=== PATIENT | female | born 1990 | race Caucasian/White ===

== ENCOUNTER 2019-04-24 12:00 | Observation (INO) | payer MEDICAID, OTHER ==
[~2019-04-24] VITALS: Ht 172.7 cm; Wt 82.3 kg
--- NOTE | 2019-04-24 12:00 | NUR ---
NAOMI HARDY presented to unit via ambulatory from office, accompanied by S/O, with c/o FEVER, PAIN. NAOMI HARDY weighed, gowned, voided, and to bed. EFHM and TOCO applied, VS taken. NAOMI HARDY oriented to bed controls, call light, TV, heat, and A/C controls.
[2019-04-24 12:15] VITALS: BP 108/67
[2019-04-24] MEDS ORDERED: cefTRIAXone FOR IV USE 1,000 MG in WATER (STERILE) FOR INJECTION 10 ML IV NR (12:45)
[2019-04-24 13:00] VITALS: BP 118/64
[2019-04-24] MEDS ORDERED: CATHETER FLUSH 10 ML SYR IV PRN (13:00)
[2019-04-24 13:02] LABS: BASOPHILS % (AUTO) 0 % (0-10); EOSINOPHILS % (AUTO) 0 % (0-10); HEMATOCRIT 37 % (35-52); HEMOGLOBIN 12.4 G/DL (11.5-16.0); LYMPHOCYTES # (AUTO) 0.6 X 10^3 (1.0-4.0); LYMPHOCYTES % (AUTO) 3 % (12-44); MEAN CORPUSCULAR HEMOGLOBIN 32 PG (25-34); MEAN CORPUSCULAR HGB CONC 34 G/DL (32-36); MEAN CORPUSCULAR VOLUME 93 FL (80-99); MEAN PLATELET VOLUME 10.3 FL (7.4-10.4); MONOCYTES # (AUTO) 1.2 X 10^3 (0.0-1.0); MONOCYTES % (AUTO) 7 % (0-12); NEUTROPHILS # (AUTO) 16.3 X 10^3 (1.8-7.8); NEUTROPHILS % (AUTO) 90 % (42-75); PLATELET COUNT 225 10^3/uL (130-400); RED CELL DISTRIBUTION WIDTH 13.9 % (10.0-14.5); WHITE BLOOD COUNT 18.1 10^3/uL (4.3-11.0)
[2019-04-24] MEDS: NS IV 1000 ML 1,000 ML IV SCH ×2 (13:14→19:53)
[2019-04-24 13:22] LABS: ALANINE AMINOTRANSFERASE 14 U/L (0-55); ALBUMIN 3.7 GM/DL (3.2-4.5); ALKALINE PHOSPHATASE 93 U/L (40-136); BILIRUBIN,TOTAL 0.4 MG/DL (0.1-1.0); BUN/CREATININE RATIO 10; CALCIUM 8.4 MG/DL (8.5-10.1); CARBON DIOXIDE 20 MMOL/L (21-32); CHLORIDE 106 MMOL/L (98-107); CREATININE SERUM 0.52 MG/DL (0.60-1.30); GFR ESTIMATED > 60; GLUCOSE 85 MG/DL (70-105); POTASSIUM 3.5 MMOL/L (3.6-5.0); SODIUM 135 MMOL/L (135-145); TOTAL PROTEIN 6.5 GM/DL (6.4-8.2)
[2019-04-24 13:26] LABS: BILIRUBIN,URINE NEGATIVE (NEGATIVE); CLARITY,URINE CLEAR; GLUCOSE, URINE (UA) NEGATIVE (NEGATIVE); KETONES,URINE 2+ (NEGATIVE); LEUKOCYTE ESTERASE ,URINE NEGATIVE (NEGATIVE); NITRITE,URINE NEGATIVE (NEGATIVE); PH,URINE 6.5 (5-9); PROTEIN,URINE NEGATIVE (NEGATIVE); UROBILINOGEN,URINE NORMAL (NORMAL)
[2019-04-24] MEDS: ACETAMINOPHEN 325 MG TABLET PO PRN ×2 (13:30→19:54)
--- NOTE | 2019-04-24 13:33 | Diagnostic Imaging Report ---
PROCEDURE: US abdomen complete. TECHNIQUE: Multiple real-time grayscale images were obtained over the abdomen in various projections. INDICATION: Abdominal pain. Patient is 26 weeks . FINDINGS: The liver is normal in size at 16.5 cm. No discrete liver mass is identified. The portal vein is patent and shows normal direction of flow. Gallbladder is without stones or sludge. No wall thickening or biliary duct dilatation is seen. The pancreatic head and proximal body are unremarkable. Pancreatic tail is obscured by bowel gas. Spleen is normal in size at 11.1 cm. Aorta and IVC were poorly visualized due to bowel gas. The kidneys are without calculi. There is mild hydronephrosis involving the right kidney. This could be secondary to hydronephrosis of . No left-sided hydronephrosis is identified. There is no ascites. IMPRESSION: 1. No evidence of cholelithiasis or acute cholecystitis. 2. Mild right hydronephrosis without evidence of renal calculi. This could be secondary to hydronephrosis of . No other abnormalities are seen. Dictated by: Dictated on workstation # [id number]
[2019-04-24 13:37] LABS: BACTERIA,URINE MODERATE /HPF; COLOR,URINE YELLOW; SQUAMOUS EPITHELIAL CELL,UR RARE /HPF; WBC,URINE 0-2 /HPF
[2019-04-24 13:57] LABS: BAND NEUTROPHILS 3 %; BASOPHILS % (MANUAL) 0 %; EOSINOPHILS % (MANUAL) 0 %; LYMPHOCYTES % (MANUAL) 4 %; MONOCYTES % (MANUAL) 3 %; NEUTROPHILS % (MANUAL) 90 %
[2019-04-24 13:58] LABS: RBC MORPH NORMAL
--- NOTE | 2019-04-24 14:48 | NUR ---
dr camacho called and status reviewed R/T lab result and sono results. pain level 8 with back pain and headache. temp 100.2 new orders for one time norco 5/325mg tab for pain. zofran 4 mg IV now and may repeat [id number] for nausea. regular diet as tolerated by pt. continue IV NS at 150ml/hr/pump.
[2019-04-24 15:00] VITALS: BP 124/58
[2019-04-24] MEDS ORDERED: ONDANSETRON 4 MG/2 ML (SDV) Z0FRAN ONE (15:01)
--- NOTE | 2019-04-24 15:01 | NUR ---
REFER TO LABOR FLOW SHEET.
[2019-04-24] MEDS ORDERED: HYDROcodone/APAP 5 MG/325 MG (LORTAB) TAB ONE (15:02)
[2019-04-24] MEDS ORDERED: HYDROcodone/APAP 5 MG/325 MG (LORTAB) TAB PO ONE (15:15)
[2019-04-24] MEDS: ONDANSETRON 4 MG/2 ML (SDV) Z0FRAN IVP PRN (15:53)
--- NOTE | 2019-04-24 16:18 | NUR ---
PT HAS LUNCH/DINNER TRAY IN FRONT OF HER, REQUESTING TO GET UP TO THE BATHROOM. ASSISTED PROVIDED. PT INFORMED THAT STAFF WILL BE BACK IN SHORTLY TO PLUG IN IV PUMP. NO OTHER NEEDS VOICED AT THIS TIME.
[2019-04-24 16:26] VITALS: BP 115/57
[2019-04-24] MEDS ORDERED: PREN-37 PO (16:33)
[2019-04-24 19:54] VITALS: BP 119/65
--- NOTE | 2019-04-24 19:54 | NUR ---
VS taken, pt. states she has been shivering & feels as if she has a fever. Tylenol given per request for c/o pain, will re-eval. POC reviewed, pt. verbalized understanding, given fresh ice water.
--- NOTE | 2019-04-24 21:03 | NUR ---
Pt. cont. to c/o pain on R side/back & h/a, called Dr. Amato, OC for [facility], report given. New orders rc'd for Lortab 1-2 tabs q 4-6 hrs prn pain, CBC in am, blood cultures, Rocephin q 24 hrs.
[2019-04-24] MEDS: HYDROcodone/APAP 5 MG/325 MG (LORTAB) TAB PO PRN (21:18)
[2019-04-25 00:58] VITALS: BP 107/58
[2019-04-25] MEDS: NS IV 1000 ML 1,000 ML IV SCH ×4 (02:22→22:45)
[2019-04-25 05:00] VITALS: BP 120/56
[2019-04-25] MEDS: HYDROcodone/APAP 5 MG/325 MG (LORTAB) TAB PO PRN ×3 (05:01→17:52)
[2019-04-25 05:53] LABS: BASOPHILS % (AUTO) 0 % (0-10); EOSINOPHILS % (AUTO) 0 % (0-10); HEMATOCRIT 31 % (35-52); HEMOGLOBIN 10.5 G/DL (11.5-16.0); LYMPHOCYTES # (AUTO) 0.8 X 10^3 (1.0-4.0); LYMPHOCYTES % (AUTO) 7 % (12-44); MEAN CORPUSCULAR HEMOGLOBIN 31 PG (25-34); MEAN CORPUSCULAR HGB CONC 33 G/DL (32-36); MEAN CORPUSCULAR VOLUME 94 FL (80-99); MEAN PLATELET VOLUME 10.2 FL (7.4-10.4); MONOCYTES # (AUTO) 1.1 X 10^3 (0.0-1.0); MONOCYTES % (AUTO) 10 % (0-12); NEUTROPHILS # (AUTO) 9.7 X 10^3 (1.8-7.8); NEUTROPHILS % (AUTO) 83 % (42-75); PLATELET COUNT 209 10^3/uL (130-400); RED CELL DISTRIBUTION WIDTH 14.1 % (10.0-14.5); WHITE BLOOD COUNT 11.6 10^3/uL (4.3-11.0)
--- NOTE | 2019-04-25 07:25 | NUR ---
DR. MOTT HERE.
--- NOTE | 2019-04-25 07:40 | History & Physical ---
HPI History of Present Illness: This is a 29yo G1 at 27wk who presented to L&D yesterday from the office with complaints of 1 day hx of pain radiating from R shoulder to R flank, n/v, fever. Pt denies any contractions or vaginal bleeding and admits to movement. Pt has had an unremarkable to this point with onset of symptoms ye sterday. Pt reports temp of 102 at the clinic. Denies urinary symptoms. Admits to RIVERA since yesterday and decreased appetite for the past day. Pt reports some improvement in pain today with pain medication. Had Tmax of 102 this am, improved currently. RIVERA improved but still present and n/v has resolved. Source: patient Exam Limitations: no limitations Date seen by provider: Apr 25, 2019 Time Seen by Provider: 07:35 Attending Physician Wesley Mott DO PCP Dr. Reyna Consult Date of Admission Home Medications Home Medications Reviewed patient Home Medication Reconciliation performed by pharmacy medication reconciliations speech therapist technician and/or nursing. Patients Allergies have been reviewed. Allergies Coded Allergies: No Known Drug Allergies (Unverified , 04/24/19) CJP-Dkrmsg-[id number] Hx Patient Social History Recent Foreign Travel: No Contact w/other who traveled: No Recent Infectious Disease Expo: No Physical Abuse Screen: No Sexual Abuse: No Past Medical History Denies PMH PSH: wisdom teeth Review of Systems ([facility]) Constitutional: see HPI Reviewed Test Results Reviewed Test Results Lab Laboratory Tests 04/24/19 12:50: Urine Color YELLOW, Urine Clarity CLEAR, Urine pH 6.5, Urine Specific Burke 1.005L, Urine Protein NEGATIVE, Urine Glucose (UA) NEGATIVE, Urine Ketones 2+H, Urine Nitrite NEGATIVE, Urine Bilirubin NEGATIVE, Urine Urobilinogen NORMAL, Urine Leukocyte Esterase NEGATIVE, Urine RBC (Auto) NEGATIVE, Urine RBC NONE, Urine WBC 0-2, Urine Squamous Epithelial Cells RARE, Urine Crystals NONE, Urine Bacteria MODERATEH, Urine Casts NONE, Urine Mucus NEGATIVE, Urine Culture Indicated CULTURE PENDING 04/24/19 12:55: White Blood Count 18.1H, Red Blood Count 3.94L, Hemoglobin 12.4, Hematocrit 37, Mean Corpuscular Volume 93, Mean Corpuscular Hemoglobin 32, Mean Corpuscular Hemoglobin Concent 34, Red Cell Distribution Width 13.9, Platelet Count 225, Mean Platelet Volume 10.3, Neutrophils (%) (Auto) 90H, Lymphocytes (%) (Auto) 3L , Monocytes (%) (Auto) 7, Eosinophils (%) (Auto) 0, Basophils (%) (Auto) 0, Neutrophils # (Auto) 16.3H, Lymphocytes # (Auto) 0.6L, Monocytes # (Auto) 1.2H, Eosinophils # (Auto) 0.0, Basophils # (Auto) 0.0, Neutrophils % (Manual) 90, Lymphocytes % (Manual) 4, Monocytes % (Manual) 3, Eosinophils % (Manual) 0, Basophils % (Manual) 0, Band Neutrophils 3, Blood Morphology Comment NORMAL, Sodium Level 135, Potassium Level 3.5L, Chloride Level 106, Carbon Dioxide Level 20L, Anion Gap 9, Blood Urea Nitrogen 5L, Creatinine 0.52L, Estimat Glomerular Filtration Rate > 60, BUN/Creatinine Ratio 10, Glucose Level 85, Calcium Level 8.4L, Corrected Calcium 8.6, Total Bilirubin 0.4, Aspartate Amino Transf (AST/SGOT) 14, Alanine Aminotransferase (ALT/SGPT) 14, Alkaline Phosphatase 93, Total Protein 6.5, Albumin 3.7 04/25/19 05:25: White Blood Count 11.6H, Red Blood Count 3.35L, Hemoglobin 10.5L, Hematocrit 31L , Mean Corpuscular Volume 94, Mean Corpuscular Hemoglobin 31, Mean Corpuscular Hemoglobin Concent 33, Red Cell Distribution Width 14.1, Platelet Count 209, Mean Platelet Volume 10.2, Neutrophils (%) (Auto) 83H, Lymphocytes (%) (Auto) 7L , Monocytes (%) (Auto) 10, Eosinophils (%) (Auto) 0, Basophils (%) (Auto) 0, Neutrophils # (Auto) 9.7H, Lymphocytes # (Auto) 0.8L, Monocytes # (Auto) 1.1H, Eosinophils # (Auto) 0.0, Basophils # (Auto) 0.0 Radiology Date of Exam: 04/24/19 US ABDOMEN COMPLETE [id number] PROCEDURE: US abdomen complete. TECHNIQUE: Multiple real-time grayscale images were obtained over the abdomen in various projections. INDICATION: Abdominal pain. Patient is 26 weeks . FINDINGS: The liver is normal in size at 16.5 cm. No discrete liver mass is identified. The portal vein is patent and shows normal direction of flow. Gallbladder is without stones or sludge. No wall thickening or biliary duct dilatation is seen. The pancreatic head and proximal body are unremarkable. Pancreatic tail is obscured by bowel gas. Spleen is normal in size at 11.1 cm. Aorta and IVC were poorly visualized due to bowel gas. The kidneys are without calculi. There is mild hydronephrosis involving the right kidney. This could be secondary to hydronephrosis of . No left-sided hydronephrosis is identified. There is no ascites. IMPRESSION: 1. No evidence of cholelithiasis or acute cholecystitis. 2. Mild right hydronephrosis without evidence of renal calculi. This could be secondary to hydronephrosis of . No other abnormalities are seen. Physical Exam-([facility]) Physical Exam Vital Signs VS - Last 72 Hours, by Label 04/24/19 04/24/19 04/24/19 04/24/19 12:15 13:00 15:00 15:53 Temp 100.2 99.2 100.2 100.2 Pulse 87 92 104 Resp 20 20 22 B/P (MAP) 108/67 (81) 118/64 (82) 124/58 (80) Pulse Ox 96 96 04/24/19 04/24/19 04/24/19 04/24/19 16:26 18:00 19:54 20:55 Temp 99.2 98.1 99.2 99.2 Pulse 110 90 Resp 18 18 B/P (MAP) 115/57 (76) 119/65 (83) Pulse Ox 96 96 O2 Delivery Room Air Room Air 04/24/19 04/25/19 04/25/19 04/25/19 22:15 00:58 05:00 05:00 Temp 99.4 98.6 102.0 100.0 Pulse 86 101 Resp 18 18 B/P (MAP) 107/58 (74) 120/56 (77) Pulse Ox 96 O2 Delivery Room Air Room Air 04/25/19 06:00 Temp 98.3 Capillary Refill : General Appearance: WD/WN, no apparent distress HEENT: PERRL/EOMI; No scleral icterus (L) Neck: full range of motion Respiratory: no respiratory distress, no accessory muscle use Gastrointestinal: non tender, soft Back: CVA tenderness (R) (mild ttp) Neurologic/Psychiatric: alert, normal mood/affect, oriented x 3 Skin: normal color, warm/dry Assessment/Plan Assessment/Plan Admission Dx G1 at 27wk R flank pain, fever Admission Status: Observation Assessment & Plan G1 at 27wk gestation R flank pain, fever - elevated wbc of 18 on admission, improved today to 11 - urine and blood culture pending, treating empirically with Rocephin - continue IVF, intermittent NST for monitoring and pain control w/ po meds. WESLEY MOTT DO Apr 25, 2019 07:40
[2019-04-25 09:06] VITALS: BP 114/59
--- NOTE | 2019-04-25 09:55 | NUR ---
REFER TO LABOR FLOW SHEET.
[2019-04-25] MEDS: ONDANSETRON 4 MG/2 ML (SDV) Z0FRAN IVP PRN (11:28)
--- NOTE | 2019-04-25 11:30 | NUR ---
THIS RN TO BEDSIDE TO ROUND, PT C/O PAIN. LORTAB AND ZOFRAN GIVEN PER REQUEST; SEE EMAR FOR FURTHER. TEMP OBTAINED. NO OTHER NEEDS VOICED AT THIS TIME. CALL LIGHT WITHIN REACH.
[2019-04-25 13:59] VITALS: BP 122/67
[2019-04-25] MEDS: cefTRIAXone FOR IV USE 1,000 MG in WATER (STERILE) FOR INJECTION 10 ML IV SCH (14:01)
[2019-04-25 17:48] VITALS: BP 128/68
--- NOTE | 2019-04-25 17:52 | NUR ---
VS OBTAINED. (2) LORTAB GIVEN PO; SEE EMAR FOR FURTHER. SPRITE ALSO PROVIDED AT THIS TIME. S/O RESTING AT THE BEDSIDE. NO FURTHER NEEDS VOICED.
[2019-04-25 21:05] VITALS: BP 130/61
[2019-04-26 00:23] VITALS: BP 111/62
[2019-04-26] MEDS: HYDROcodone/APAP 5 MG/325 MG (LORTAB) TAB PO PRN ×3 (00:23→13:07)
[2019-04-26] MEDS: NS IV 1000 ML 1,000 ML IV SCH ×2 (05:15→13:11)
[2019-04-26 05:53] LABS: BASOPHILS % (AUTO) 0 % (0-10); EOSINOPHILS # (AUTO) 0.1 10^3/uL (0.0-0.3); EOSINOPHILS % (AUTO) 1 % (0-10); HEMATOCRIT 29 % (35-52); HEMOGLOBIN 9.6 G/DL (11.5-16.0); LYMPHOCYTES # (AUTO) 1.3 X 10^3 (1.0-4.0); LYMPHOCYTES % (AUTO) 15 % (12-44); MEAN CORPUSCULAR HEMOGLOBIN 31 PG (25-34); MEAN CORPUSCULAR HGB CONC 33 G/DL (32-36); MEAN CORPUSCULAR VOLUME 94 FL (80-99); MEAN PLATELET VOLUME 10.3 FL (7.4-10.4); MONOCYTES # (AUTO) 0.8 X 10^3 (0.0-1.0); MONOCYTES % (AUTO) 10 % (0-12); NEUTROPHILS # (AUTO) 6.4 X 10^3 (1.8-7.8); NEUTROPHILS % (AUTO) 74 % (42-75); PLATELET COUNT 189 10^3/uL (130-400); RED CELL DISTRIBUTION WIDTH 14.1 % (10.0-14.5); WHITE BLOOD COUNT 8.7 10^3/uL (4.3-11.0)
[2019-04-26 06:21] VITALS: BP 127/70
[2019-04-26 06:26] LABS: ALANINE AMINOTRANSFERASE 8 U/L (0-55); ALBUMIN 2.6 GM/DL (3.2-4.5); ALKALINE PHOSPHATASE 67 U/L (40-136); BILIRUBIN,TOTAL 0.2 MG/DL (0.1-1.0); BUN/CREATININE RATIO 6; CALCIUM 7.6 MG/DL (8.5-10.1); CARBON DIOXIDE 17 MMOL/L (21-32); CHLORIDE 111 MMOL/L (98-107); CREATININE SERUM 0.47 MG/DL (0.60-1.30); GFR ESTIMATED > 60; GLUCOSE 87 MG/DL (70-105); POTASSIUM 3.3 MMOL/L (3.6-5.0); SODIUM 136 MMOL/L (135-145)
[2019-04-26] MEDS: ONDANSETRON 4 MG/2 ML (SDV) Z0FRAN IVP PRN (06:54)
[2019-04-26 07:41] LABS: BAND NEUTROPHILS 2 %; BASOPHILS % (MANUAL) 0 %; EOSINOPHILS % (MANUAL) 0 %; LYMPHOCYTES % (MANUAL) 13 %; MONOCYTES % (MANUAL) 6 %; NEUTROPHILS % (MANUAL) 79 %
[2019-04-26 10:03] VITALS: BP 118/61
--- NOTE | 2019-04-26 10:03 | NUR ---
initial shift assessment completed. reports pain @ 3 on 1-10 scale. monitors applied for NST.
--- NOTE | 2019-04-26 10:36 | NUR ---
monitors dc'd. monitor tracing reviewed. FHR 125. appropriate variability noted for gestational age. no ctx's noted. reactive NST noted.
--- NOTE | 2019-04-26 12:02 | Progress Note ---
Subjective Subjective/Events-last exam Pt reports feeling improved. Continues to have some mild back discomfort and RIVERA with some improvement. Denies contractions. No fever since yesterday am. Objective Exam Last Set of Vital Signs Vital Signs Date Time Temp Pulse Resp B/P (MAP) Pulse Ox O2 Delivery O2 Flow Rate FiO2 04/26/19 06:21 98.6 86 18 127/70 (89) Room Air 04/25/19 05:00 96 Capillary Refill : I&O Intake and Output 04/26/19 00:00 Intake Total 4010 ml Balance 4010 ml Intake IV Total 4010 ml General: Alert, Oriented X3, Cooperative Psych/Mental Status: Mood NL Results/Procedures Lab Laboratory Tests 04/26/19 05:17: White Blood Count 8.7, Red Blood Count 3.06L, Hemoglobin 9.6L, Hematocrit 29L, Mean Corpuscular Volume 94, Mean Corpuscular Hemoglobin 31, Mean Corpuscular Hemoglobin Concent 33, Red Cell Distribution Width 14.1, Platelet Count 189, Mean Platelet Volume 10.3, Neutrophils (%) (Auto) 74, Lymphocytes (%) (Auto) 15, Monocytes (%) (Auto) 10, Eosinophils (%) (Auto) 1, Basophils (%) (Auto) 0, Neutrophils # (Auto) 6.4, Lymphocytes # (Auto) 1.3, Monocytes # (Auto) 0.8, Eosinophils # (Auto) 0.1, Basophils # (Auto) 0.0, Neutrophils % (Manual) 79, Lymphocytes % (Manual) 13, Monocytes % (Manual) 6, Eosinophils % (Manual) 0, Basophils % (Manual) 0, Band Neutrophils 2, Sodium Level 136, Potassium Level 3.3L, Chloride Level 111H, Carbon Dioxide Level 17L, Anion Gap 8, Blood Urea Nitrogen 3L, Creatinine 0.47L, Estimat Glomerular Filtration Rate > 60, BUN/Creatinine Ratio 6, Glucose Level 87, Calcium Level 7.6L, Corrected Calcium 8.7, Total Bilirubin 0.2, Aspartate Amino Transf (AST/SGOT) 9, Alanine Aminotransferase (ALT/SGPT) 8, Alkaline Phosphatase 67, Total Protein 5.0L, Albumin 2.6L Microbiology 04/24/19 Blood Culture - Preliminary, Resulted No growth 04/24/19 Urine Culture - Preliminary, Resulted Gram Negative Bacillus 1 Radiology Date of Exam: 04/24/19 US ABDOMEN COMPLETE [id number] PROCEDURE: US abdomen complete. TECHNIQUE: Multiple real-time grayscale images were obtained over the abdomen in various projections. INDICATION: Abdominal pain. Patient is 26 weeks . FINDINGS: The liver is normal in size at 16.5 cm. No discrete liver mass is identified. The portal vein is patent and shows normal direction of flow. Gallbladder is without stones or sludge. No wall thickening or biliary duct dilatation is seen. The pancreatic head and proximal body are unremarkable. Pancreatic tail is obscured by bowel gas. Spleen is normal in size at 11.1 cm. Aorta and IVC were poorly visualized due to bowel gas. The kidneys are without calculi. There is mild hydronephrosis involving the right kidney. This could be secondary to hydronephrosis of . No left-sided hydronephrosis is identified. There is no ascites. IMPRESSION: 1. No evidence of cholelithiasis or acute cholecystitis. 2. Mild right hydronephrosis without evidence of renal calculi. This could be secondary to hydronephrosis of . No other abnormalities are seen. Assessment/Plan Assessment/Plan Assessment & Plan G1 at 27wk gestation R flank pain, fever - elevated wbc of 18 on admission, improved today to 11 - urine and blood culture pending, treating empirically with Rocephin - continue IVF, intermittent NST for monitoring and pain control w/ po meds. 04/26 - wbc normalized; urine culture prelim gram neg bacillus awaiting sensitivities; blood culture negative - continue same awaiting final culture results - if remains afebrile consider DC today on po antibiotics. - replace rosalinda Patton w/ po. WESLEY MOTT DO Apr 26, 2019 12:02
[2019-04-26] MEDS ORDERED: KCL 20 MEQ TAB (K-DUR) PO NR (12:15)
[2019-04-26] MEDS: cefTRIAXone FOR IV USE 1,000 MG in WATER (STERILE) FOR INJECTION 10 ML IV SCH (14:01)
[2019-04-26 14:05] VITALS: BP 126/68
--- NOTE | 2019-04-26 15:32 | NUR ---
Pt requesting dismissal to home. was notified. dismissal order received. pt reports pain better.
--- NOTE | 2019-04-26 16:20 | NUR ---
dismissal instructions given, verbalizes understanding. reviewed dismissal medications, instructed to finish Abx until completed. follow up with Dr. Reyna as scheduled. signature page signed, placed on chart. IV site alejo'alexis.
--- NOTE | 2019-04-26 16:30 | NUR ---
pt dismissed to private vehicle via w/c with staff and s/o @ side. pt stable with no sx's of distress noted.
== END 2019-04-26 16:09 | disposition home or self-care (01) ==
LOC: LDRP 12:00 → WSo 12:22 → LDRP 04-25 07:33 → UNDOADMOB 04-25 07:33 → LDRP 04-25 07:33 → WSo 04-25 07:33 → LDRP 04-26 16:30 → WSo 04-26 16:30 → UNDODISOB 04-26 16:30 → EDSTATUS 04-30 12:20
PROVIDERS: ADMIT Family Medicine; ATTEND Family Medicine
DX: O99.89 Other specified diseases and conditions complicating pregnancy, childbirth and the puerperium (principal); R10.9 Unspecified abdominal pain; R51 Headache; Z3A.27 27 weeks gestation of pregnancy
CPT/HCPCS: 36415; 76700; 80053; 81000; 85007; 85025; 85027; 87040; 87077; 87088; 87186; 96361; 96374; 96375; 96376; 99211; G0378

== ENCOUNTER 2019-06-17 14:02 | Outpatient (CLI) | payer OTHER ==
[~2019-06-17] VITALS: Ht 172.7 cm; Wt 85.2 kg
--- NOTE | 2019-06-17 13:53 | NUR ---
NAOMI HARDY presented to unit via AMBULATORY from HOME, accompanied by S/O, with c/o CONTRACTIONS. NAOMI HARDY weighed, gowned, voided, and to bed. EFHM and TOCO applied, VS taken. NAOMI HARDY oriented to bed controls, call light, TV, heat, and A/C controls.
[~2019-06-17 14:02] MED LIST: PREN-37 PO
[2019-06-17 14:15] VITALS: BP 131/75
[2019-06-17 14:27] LABS: BILIRUBIN,URINE NEGATIVE (NEGATIVE); CLARITY,URINE CLEAR; COLOR,URINE YELLOW; GLUCOSE, URINE (UA) NEGATIVE (NEGATIVE); KETONES,URINE NEGATIVE (NEGATIVE); LEUKOCYTE ESTERASE ,URINE 2+ (NEGATIVE); NITRITE,URINE NEGATIVE (NEGATIVE); PH,URINE 6.5 (5-9); PROTEIN,URINE NEGATIVE (NEGATIVE); UROBILINOGEN,URINE NORMAL (NORMAL)
[2019-06-17 14:41] LABS: BACTERIA,URINE MODERATE /HPF; SQUAMOUS EPITHELIAL CELL,UR 0-2 /HPF
--- NOTE | 2019-06-17 15:05 | NUR ---
DR. GALEANO NOTIFIED OF PT ARRIVAL, 34-4 WKS, C/O, REVIEW OF STRIP, UA RESULTS. NEW ORDERS RECEIVED.
--- NOTE | 2019-06-17 15:06 | NUR ---
REFER TO LABOR FLOW SHEET.
[2019-06-17] MEDS ORDERED: PHEN-640 PO (15:19)
[2019-06-17] MEDS ORDERED: NITR-65 PO (15:19)
[2019-06-17] MEDS ORDERED: ACET-789 PO (15:19)
--- NOTE | 2019-06-17 15:23 | NUR ---
DISCHARGE PAPERS PROVIDED AND REVIEWED WITH PT, UNDERSTANDING VERBALIZED AND NO QUESTIONS VOICED. PAPER SIGNED.
--- NOTE | 2019-06-17 15:25 | NUR ---
PT DISCHARGED FROM [facility] TO [facility] VIA AMBULATORY IN STABLE CONDITION ACC BY S/O.
--- NOTE | 2019-06-17 15:43 | NUR ---
RX'S CALLED INTO [facility].
--- NOTE | 2019-06-18 08:39 | Physician Query-Final Dx ---
MAMTA TREVIZO 06/18/19 0839: Clinic Account Progress/Dx Physician Query: Please give diagnosis Please include # weeks gestation Date of Service Jun 17, 2019 at 14:02 CRUZ GALEANO DO 06/24/19 0734: Clinic Account Progress/Dx Physician Query: Please give diagnosis (Intrauterine at 34 weeks 2. Pelvic Pain 3. UTI) DIAGNOSIS: Diagnosis Intrauterine at 34 weeks 2. Pelvic Pain 3. UTI MAMTA TREVIZO Jun 18, 2019 08:39 CRUZ GALEANO DO Jun 24, 2019 07:34
[2019-06-25] MEDS ORDERED: ACET-77 PO (06:23)
[2019-06-25] MEDS ORDERED: OXC5T PO (06:23)
[2019-06-25] MEDS ORDERED: DOCU100C37 PO (06:23)
[2019-06-25] MEDS ORDERED: IBUP-1780 PO (06:23)
== END 2019-06-17 15:25 | disposition home or self-care (01) ==
LOC: LDRP 14:02 → WSo 14:02
PROVIDERS: ATTEND Obstetrics & Gynecology
DX: O23.43 Unspecified infection of urinary tract in pregnancy, third trimester (principal); Z3A.34 34 weeks gestation of pregnancy
CPT/HCPCS: 81000; 87077; 87088; 87186; 99213

== ENCOUNTER 2019-06-23 16:52 | Inpatient (IN) | payer OTHER ==
[~2019-06-23] VITALS: Ht 172.7 cm; Wt 84.9 kg
[2019-06-23] VITALS (24 sets, daily range): BP systolic 112–142; BP diastolic 62–79
--- NOTE | 2019-06-23 16:47 | NUR ---
NAOMI HARDY presented to unit via AMBULATORY from HOME, accompanied by S/O, with c/o POSSIBLE MEMBRANE RUPTURE. NAOMI HARDY weighed, gowned, voided, and to bed. EFHM and TOCO applied, VS taken. NAOMI HARDY oriented to bed controls, call light, TV, heat, and A/C controls.
[~2019-06-23 16:52] MED LIST changes: +ACET-789 PO; +NITR-65 PO; +PHEN-640 PO
--- NOTE | 2019-06-23 17:15 | NUR ---
DR. GALEANO NOTIFIED OF PT'S ARRIVAL, GESTATION, + AMNIO, SVE, CTX PATTERN. NEW ORDERS RECEIVED.
[2019-06-23] MEDS ORDERED: OXYTOCIN/NORMAL SALINE 500 ML IV SCH (17:48)
[2019-06-23] MEDS ORDERED: AMPICILLIN FOR IV USE 2,000 MG in WATER (STERILE) FOR INJECTION 14.8 ML IV ONE (17:48)
[2019-06-23] MEDS ORDERED: D5 LR IV SOLUTION 1,000 ML IV ONE (17:54)
[2019-06-23] MEDS ORDERED: AMPICILLIN FOR IV USE 2,000 MG VIAL ONE (17:54)
[2019-06-23] MEDS ORDERED: WATER (STERILE) FOR INJECTION 20 ML ONE (17:54)
[2019-06-23] MEDS ORDERED: MINERAL OIL CONCENTRATE 99.9% 15 ML UDC TOP PRN (18:00)
[2019-06-23] MEDS: D5 LR IV SOLUTION 1,000 ML IV SCH (18:10)
[2019-06-23 18:26] LABS: BASOPHILS % (AUTO) 0 % (0-10); EOSINOPHILS # (AUTO) 0.1 10^3/uL (0.0-0.3); EOSINOPHILS % (AUTO) 1 % (0-10); HEMATOCRIT 35 % (35-52); HEMOGLOBIN 11.5 G/DL (11.5-16.0); LYMPHOCYTES # (AUTO) 1.9 X 10^3 (1.0-4.0); LYMPHOCYTES % (AUTO) 18 % (12-44); MEAN CORPUSCULAR HEMOGLOBIN 30 PG (25-34); MEAN CORPUSCULAR HGB CONC 33 G/DL (32-36); MEAN CORPUSCULAR VOLUME 90 FL (80-99); MONOCYTES # (AUTO) 1.2 X 10^3 (0.0-1.0); MONOCYTES % (AUTO) 11 % (0-12); NEUTROPHILS # (AUTO) 7.6 X 10^3 (1.8-7.8); NEUTROPHILS % (AUTO) 70 % (42-75); PLATELET COUNT 327 10^3/uL (130-400); RED CELL DISTRIBUTION WIDTH 13.7 % (10.0-14.5); WHITE BLOOD COUNT 10.8 10^3/uL (4.3-11.0)
[2019-06-23] MEDS ORDERED: OXYTOCIN/NORMAL SALINE 500 ML IV ONE (19:13)
[2019-06-23] MEDS ORDERED: SUFENTA 0.6MCG/ML BUPIVA 0.125 100 ML ONE (20:56)
[2019-06-23] MEDS ORDERED: BUPIVACAINE 0.25% 30 ML (SENSORCAINE) VIAL ONE (21:47)
[2019-06-23] MEDS ORDERED: fentaNYL INJECTION 100 MCG/2 ML AMP ONE (21:47)
[2019-06-23] MEDS ORDERED: CATHETER FLUSH 10 ML SYR IV SCH (22:00)
[2019-06-23] MEDS: EPIDURAL (SUFENTA 0.6MCG/ML BUPIVA 0.125%) 100 ML BAG EPI PRN (22:06)
[2019-06-23] MEDS ORDERED: LACTATED RINGERS 1,000 ML IV SCH (22:25)
[2019-06-23] MEDS ORDERED: diphenhydrAMINE 50 MG/ML INJ (BENADRYL) IV PRN (22:30)
[2019-06-23] MEDS ORDERED: METOCLOPRAMIDE INJ 10 MG/2 ML (REGLAN) IV PRN (22:30)
[2019-06-23] MEDS ORDERED: NALOXONE 0.4 MG/ML 1 ML (NARCAN) VIAL IV PRN ×2 (22:30)
[2019-06-23] MEDS ORDERED: ONDANSETRON 4 MG/2 ML (SDV) Z0FRAN IV PRN (22:30)
[2019-06-23] MEDS: AMPICILLIN FOR IV USE 1,000 MG in WATER (STERILE) FOR INJECTION 7.4 ML IV SCH (23:26)
[2019-06-24] VITALS (71 sets, daily range): BP systolic 101–143; BP diastolic 56–83
[2019-06-24] MEDS: D5 LR IV SOLUTION 1,000 ML IV SCH ×2 (02:43→11:41)
[2019-06-24] MEDS: AMPICILLIN FOR IV USE 1,000 MG in WATER (STERILE) FOR INJECTION 7.4 ML IV SCH ×3 (03:12→11:11)
[2019-06-24] MEDS: EPIDURAL (SUFENTA 0.6MCG/ML BUPIVA 0.125%) 100 ML BAG EPI PRN (06:44)
--- NOTE | 2019-06-24 07:25 | History & Physical-OB ---
OB - Chief Complaint & HPI Date/Time Date of Admission: Date of Admission: Jun 23, 2019 at 17:15 Date seen by a Provider: Jun 24, 2019 Time Seen by a Provider: 07:10 Chief Complaint/History OB-Reason for Admission/Chief: Rupture of Membranes Hx : 1 Hx Para: 0 Expected Date of Delivery: Jul 25, 2019 Gestational Age in Weeks: 35 Gestational Age in Days: 3 Admission Nurse Assessment Rev: Yes Allergies and Home Medications Allergies Coded Allergies: No Known Drug Allergies (Unverified , 04/24/19) Home Medications Acetaminophen with Codeine 1 Each Tablet, 1 EACH PO Q6H PRN for PAIN-MILD Prescribed by: YANI QUEEN on 06/17/191518 Nitrofurantoin Monohyd/M-Cryst 100 Mg Capsule, 1 TAB PO Q12H Prescribed by: YANI QUEEN on 06/17/191518 Phenazopyridine HCl 200 Mg Tablet, 1 TAB PO Q8H Prescribed by: YANI QUEEN on 06/17/191518 Vit/Iron Fumarate/FA 1 Each Tablet, 1 EACH PO DAILY, (Reported) Patient Home Medication List Home Medication List Reviewed: Yes OB - History Hx of Present Care: Yes Ultrasounds: Normal mid trimester US Obstetrical Complications: Other (UTI during this ) Medical Complications: None Information Induced Hypertension: No Maternal Gestational Diabetes: No Hemorrhage: No Obstetrical History Hx : 1 Hx Para: 0 Hx # Term Pregnancies: 0 Hx # Pregnancies: 0 Number of Living Children: 0 Hx Termination: No Delivery History Adverse Rxn to Tranfusion: No Patient Past Medical History Denies PMH PSH: wisdom teeth Social History/Family History HIV/AIDS: No Recent Infectious Disease Expo: No Sexually Transmitted Disease: No Alcohol Use: Denies Use Recreational Drug Use: No 2nd Hand Smoke Exposure: No Immunizations Hepatitis A: No Hepatitis B: No OB - Admission Exam Physical Exam Vitals: Vital Signs 06/24/19 06/24/19 06/24/19 03:30 05:15 06:30 Temp 36.8 Pulse 77 Resp 18 B/P (MAP) 106/60 (75) Pulse Ox 97 O2 Delivery Room Air HEENT: NCAT Heart: Rhythm Normal Lungs: Clear Abdomen: Gravid Extremities: Normal Reflexes: Normal Cervical Dilatation: 2cm Effacement: Other (40%) Station: -3 Membranes: Ruptured Amniotic Fluid: Clear Heart Rate: 130's Accelerations: Accelerations Present Decelerations: No Decelerations Short Term Variability: Present Survey Rodman Variability: Average (6-25) Contractions on Admission: < 5 Minutes Apart Intensity: Mild Vo Scoring Tool (Modified) Dilation (cm): 1-2cm (1) Effacement (%): 31-51% (1) Cervix Consistency: Medium(1) Subtract 1 point for: Nulliparity (-1) Labs Laboratory Tests Test 06/23/19 18:05 Range/Units White Blood Count 10.8 4.3-11.0 10^3/uL Red Blood Count 3.88 L 4.35-5.85 10^6/uL Hemoglobin 11.5 11.5-16.0 G/DL Hematocrit 35 35-52 % Mean Corpuscular Volume 90 80-99 FL Mean Corpuscular Hemoglobin 30 25-34 PG Mean Corpuscular Hemoglobin Concent 33 32-36 G/DL Red Cell Distribution Width 13.7 10.0-14.5 % Platelet Count 327 130-400 10^3/uL Mean Platelet Volume 10.0 7.4-10.4 FL Neutrophils (%) (Auto) 70 42-75 % Lymphocytes (%) (Auto) 18 12-44 % Monocytes (%) (Auto) 11 0-12 % Eosinophils (%) (Auto) 1 0-10 % Basophils (%) (Auto) 0 0-10 % Neutrophils # (Auto) 7.6 1.8-7.8 X 10^3 Lymphocytes # (Auto) 1.9 1.0-4.0 X 10^3 Monocytes # (Auto) 1.2 H 0.0-1.0 X 10^3 Eosinophils # (Auto) 0.1 0.0-0.3 10^3/uL Basophils # (Auto) 0.0 0.0-0.1 10^3/uL OB - Assessment/Plan/Diagnosis Assessment Assessment: labor Admission Dx Intrauterine at 35 3/7 weeks 2. PROM 3. Labor 4. Unknown GBS Status Admission Status: Inpatient Order (span 2 midnights) Reason for Inpatient Admission: Intrauterine at 35 3/7 weeks 2. PROM 3. Labor 4. Unknown GBS Status Plan Plan: Other (Pitocin Augmentation of Labor. Ampicillin for Unknown GBS Status) Induction Method: per Pitocin Protocol CRUZ GALEANO DO Jun 24, 2019 07:25
--- NOTE | 2019-06-24 07:30 | NUR ---
Dr. Reyna here. To room to see pt. No new orders rec'd.
[2019-06-24] MEDS: ACETAMINOPHEN 500 MG TAB (TYLENOL) PO PRN (12:32)
[2019-06-24] MEDS ORDERED: LIDOCAINE 1% INJ 20 ML 20 ML VIAL ONE (14:53)
[2019-06-24] MEDS ORDERED: OXYTOCIN/NORMAL SALINE 500 ML IV SCH ×2 (15:55→21:00)
[2019-06-24] MEDS ORDERED: TETANUS,DIPTH,PERTUSS P/F (BOOSTRIX) 0.5 ML VIAL IM ONE (16:00)
[2019-06-24] MEDS ORDERED: MEASLES,MUMPS,RUBELLA 1 EA INJ SQ ONE (16:00)
--- NOTE | 2019-06-24 16:00 | OB Labor & Delivery Record ---
Vag Delivery Note Vag Delivery Note Date of Delivery: 06/24/19 Preoperative Diagnosis: Amilcar Keene is a (29 /Para 1 / 0, Gestational Age (wks)35 3/7 weeks with [PROM] Postoperative Diagnosis: Same Surgeon: CRUZ GALEANO Senior It Auditor: [None] Anesthesia: [Epidural and Local] Delivery Type: [Normal Spontaneous Vaginal Delivery with Midline Episiotomy and Standard Repair] Findings: [] Viable [male] , apgars [], weight [7 lb 8 0z] Lacerations: Midline Episiotomy and Standard Repair Intact placenta with 3 vessel cord. No nuchal cord, body cord or shoulder dystocia Estimated Blood Loss: [300] ml Complications: None Condition: Stable Description of Procedure: The patient is a 29 year old female who presented [with PROM]. She was admitted and informed consent was obtained. Her labor course was remarkable for [ Rupture of Membranes, Labor, Unknown GBS status] She progressed to complete dilatation and began to push. She was then set up for delivery. The infant's head was delivered atraumatically in the [KEVON] position. The shoulders and remainder of the 's body were then delivered without difficulty. Upon delivery, the head was held below the level of the perineum and the mouth and nares were bulb suctioned. The cord was doubly clamped and cut and the was handed off to the pediatric staff. An intact placenta with 3-vessel cord delivered via Yefri and there was found to be minimal bleeding.~ Vigorous fundal massage was performed and the fundus was found to be firm. IV oxytocin was given. Examination of the vagina and perineum revealed the midline episiotomy with no extension, repaired in the usual fashion with 2-0 vicryl suture. Following the repair, sponge, instrument and needle counts were correct. Mom and baby were both in stable condition in the labor suite. Vitals - Labs Vital Signs - I&O Vital Signs Date Time Temp Pulse Resp B/P (MAP) Pulse Ox O2 Delivery O2 Flow Rate FiO2 06/24/19 13:00 37.1 85 18 116/66 (83) Room Air 06/24/19 12:45 93 18 127/71 (89) Room Air 06/24/19 12:30 95 18 129/72 (91) Room Air 06/24/19 12:15 92 18 121/70 (87) Room Air 06/24/19 12:00 91 18 124/71 (88) Room Air 06/24/19 11:45 37.0 95 18 120/75 (90) Room Air 06/24/19 11:30 90 18 119/69 (86) Room Air 06/24/19 11:15 95 18 123/73 (90) Room Air 06/24/19 11:00 100 18 120/70 (87) Room Air 06/24/19 10:45 96 18 118/72 (87) Room Air 06/24/19 10:30 98 18 117/70 (86) Room Air 06/24/19 10:15 91 18 119/67 (84) Room Air 06/24/19 10:00 90 18 115/68 (84) Room Air 06/24/19 09:45 96 18 115/69 (84) Room Air 06/24/19 09:30 36.8 86 18 116/61 (79) Room Air 06/24/19 09:15 87 18 121/68 (85) Room Air 06/24/19 09:00 81 18 117/65 (82) Room Air 06/24/19 08:45 83 18 122/70 (87) Room Air 06/24/19 08:30 85 18 121/75 (90) Room Air 06/24/19 08:15 87 18 112/72 (85) Room Air 06/24/19 08:00 75 18 106/62 (77) Room Air 06/24/19 07:45 75 18 110/67 (81) Room Air 06/24/19 07:30 36.7 71 18 117/68 (84) Room Air 06/24/19 07:15 81 18 127/83 (98) Room Air 06/24/19 07:00 79 18 121/79 (93) Room Air 06/24/19 06:45 78 18 115/65 (82) Room Air 06/24/19 06:30 77 18 106/60 (75) Room Air 06/24/19 06:15 75 18 109/59 (76) Room Air 06/24/19 06:00 74 18 109/60 (76) Room Air 06/24/19 05:45 78 18 109/62 (78) Room Air 06/24/19 05:30 79 18 107/60 (76) Room Air 06/24/19 05:15 36.8 75 18 111/62 (78) Room Air 06/24/19 05:00 82 18 113/63 (80) Room Air 06/24/19 04:45 85 18 111/63 (79) Room Air 06/24/19 04:30 78 18 106/59 (75) Room Air 06/24/19 04:15 78 18 110/66 (81) Room Air 06/24/19 04:00 83 18 112/61 (78) Room Air 06/24/19 03:45 76 18 111/61 (78) Room Air 06/24/19 03:30 73 18 118/63 (81) 97 Room Air 06/24/19 03:15 78 18 119/71 (87) 97 Room Air 06/24/19 03:00 79 18 116/70 (85) 97 Room Air 06/24/19 02:45 80 18 110/71 (84) 97 Room Air 06/24/19 02:30 83 18 118/75 (89) 97 Room Air 06/24/19 02:15 86 18 106/65 (79) 97 Room Air 06/24/19 02:00 85 18 109/68 (82) 97 Room Air 06/24/19 01:45 82 18 112/69 (83) 97 Room Air 06/24/19 01:30 83 18 109/67 (81) 97 Room Air 06/24/19 01:15 83 18 118/68 (85) 96 Room Air 06/24/19 01:00 92 18 113/69 (84) 96 Room Air 06/24/19 00:45 82 18 111/66 (81) 96 Room Air 06/24/19 00:30 78 18 107/62 (77) 96 Room Air 06/24/19 00:15 88 18 115/65 (82) 97 Room Air 06/24/19 00:00 85 18 114/66 (82) 97 Room Air 06/23/19 23:45 79 18 112/67 (82) 97 Room Air 06/23/19 23:30 83 18 114/67 (83) 97 Room Air 06/23/19 23:15 76 18 114/62 (79) 97 Room Air 06/23/19 23:00 36.5 88 18 117/67 (84) 97 Room Air 06/23/19 22:53 80 18 117/66 (83) 97 Room Air 06/23/19 22:48 87 18 112/67 (82) 97 Room Air 06/23/19 22:43 77 18 115/72 (86) 97 Room Air 06/23/19 22:38 85 18 125/76 (92) 97 Room Air 06/23/19 22:33 87 18 119/69 (86) 97 Room Air 06/23/19 22:28 79 18 117/67 (84) 97 Room Air 06/23/19 22:23 83 18 127/64 (85) 97 Room Air 06/23/19 22:18 99 18 128/71 (90) 97 Room Air 06/23/19 22:13 87 18 121/68 (85) 98 Room Air 06/23/19 22:08 88 18 126/70 (88) 98 Room Air 06/23/19 22:03 88 18 131/75 (93) 97 Room Air 06/23/19 21:57 89 18 142/77 (98) 97 Room Air 06/23/19 21:52 88 18 135/79 (97) 98 Room Air 06/23/19 21:40 78 18 128/77 (94) Room Air 06/23/19 21:25 81 18 125/74 (91) Room Air 06/23/19 21:10 36.4 77 18 127/75 (92) Room Air 06/23/19 20:55 82 18 123/75 (91) Room Air 06/23/19 20:40 85 18 126/77 (93) Room Air 06/23/19 19:20 89 18 118/73 (88) Room Air 06/23/19 16:56 36.4 100 18 130/78 (95) Room Air I & O 06/24/19 07:00 Intake Total 14.8 ml Balance 14.8 ml Labs Laboratory Tests 06/23/19 18:05: White Blood Count 10.8, Red Blood Count 3.88L, Hemoglobin 11.5, Hematocrit 35, Mean Corpuscular Volume 90, Mean Corpuscular Hemoglobin 30, Mean Corpuscular Hemoglobin Concent 33, Red Cell Distribution Width 13.7, Platelet Count 327, Mean Platelet Volume 10.0, Neutrophils (%) (Auto) 70, Lymphocytes (%) (Auto) 18, Monocytes (%) (Auto) 11, Eosinophils (%) (Auto) 1, Basophils (%) (Auto) 0, Neutrophils # (Auto) 7.6, Lymphocytes # (Auto) 1.9, Monocytes # (Auto) 1.2H, Eosinophils # (Auto) 0.1, Basophils # (Auto) 0.0 CRUZ GALEANO DO Jun 24, 2019 16:00
[2019-06-24] MEDS ORDERED: ACETAMINOPHEN 500 MG TAB (TYLENOL) PO SCH (18:00)
[2019-06-24] MEDS: BENZOCAINE/MENTHOL (DERMOPLAST) 56 ML CAN TP PRN (18:19)
[2019-06-24] MEDS: WITCH HAZEL(TUCKS) 40 EA JAR TOP PRN (18:19)
[2019-06-24] MEDS ORDERED: IBUPROFEN 800 MG (MOTRIN) TAB PO ONE (18:26)
[2019-06-24] MEDS: IBUPROFEN 800 MG (MOTRIN) TAB PO SCH (18:28)
--- NOTE | 2019-06-24 19:20 | NUR ---
REPORT RECEIVED AND CARES RESUMED BY THIS NURSE.
--- NOTE | 2019-06-24 19:40 | NUR ---
D5LR DONE. MANY VISITORS PRESENT.
[2019-06-24] MEDS: DOCUSATE SODIUM 100 MG (COLACE) CAP PO SCH (20:15)
--- NOTE | 2019-06-24 20:15 | NUR ---
PITOCIN INFUSED. IV TO SALINE LOCK.
--- NOTE | 2019-06-24 21:00 | NUR ---
PT ASSISTED TO BATHROOM. SEBASTIAN WELL. SPENCER ORTIZ.
--- NOTE | 2019-06-24 21:45 | NUR ---
PT INTO SHOWER ON OWN. PT BECAME LIGHTHEADED WHILE IN SHOWER. ASSISTED INTO PANTIES AND QUICKLY BACK TO BED. PT BEGINS TO FEEL MUCH BETTER VERY QUICKLY. ENCOURAGED TO TAKE IT EASY AND CALL FOR ANY TIMES SHE IS UP AND AROUND AND FEELING THE LEAST LITTLE BIT DIZZY OR LIGHTHEADED.
[2019-06-24] MEDS ORDERED: CATHETER FLUSH 10 ML SYR IV SCH (22:00)
[2019-06-25] MEDS: IBUPROFEN 800 MG (MOTRIN) TAB PO SCH ×3 (00:05→16:05)
[2019-06-25 00:15] VITALS: BP 114/71
--- NOTE | 2019-06-25 03:00 | NUR ---
ICE PACK GIVEN FOR PERINEUM. PT HAS RESTED OFF ET ON. DENIES ANY NEEDS AT THIS TIME.
[2019-06-25 05:00] VITALS: BP 114/68
[2019-06-25] MEDS: ACETAMINOPHEN 500 MG TAB (TYLENOL) PO PRN (05:11)
[2019-06-25 06:08] LABS: BASOPHILS % (AUTO) 0 % (0-10); EOSINOPHILS # (AUTO) 0.1 10^3/uL (0.0-0.3); EOSINOPHILS % (AUTO) 1 % (0-10); HEMATOCRIT 28 % (35-52); HEMOGLOBIN 9.2 G/DL (11.5-16.0); LYMPHOCYTES # (AUTO) 1.8 X 10^3 (1.0-4.0); LYMPHOCYTES % (AUTO) 14 % (12-44); MEAN CORPUSCULAR HEMOGLOBIN 31 PG (25-34); MEAN CORPUSCULAR HGB CONC 33 G/DL (32-36); MEAN CORPUSCULAR VOLUME 92 FL (80-99); MEAN PLATELET VOLUME 9.7 FL (7.4-10.4); MONOCYTES # (AUTO) 1.3 X 10^3 (0.0-1.0); MONOCYTES % (AUTO) 10 % (0-12); NEUTROPHILS # (AUTO) 10.1 X 10^3 (1.8-7.8); NEUTROPHILS % (AUTO) 76 % (42-75); PLATELET COUNT 241 10^3/uL (130-400); RED CELL DISTRIBUTION WIDTH 13.7 % (10.0-14.5); WHITE BLOOD COUNT 13.4 10^3/uL (4.3-11.0)
[2019-06-25] MEDS ORDERED: IBUP-1780 PO (06:23)
[2019-06-25] MEDS ORDERED: OXC5T PO (06:23)
[2019-06-25] MEDS ORDERED: ACET-77 PO (06:23)
[2019-06-25] MEDS ORDERED: DOCU100C37 PO (06:23)
--- NOTE | 2019-06-25 06:30 | Discharge Summary ---
Diagnosis/Chief Complaint Date of Admission Jun 23, 2019 at 17:15 Date of Discharge June 25, 2019 Discharge Date: Jun 25, 2019 Discharge Time: 16:00 Admission Diagnosis Admission Diagnosis Intrauterine at 35 3/7 weeks 2. PROM 3. Labor 4. Unknown GBS Status Discharge Diagnosis Intrauterine at 35 3/7 weeks--delivered 2. PROM 3. Labor 4. Unknown GBS Status Reason Hospital Visit Ms. Keene was admitted to Labor & Delivery at 35 3/7 weeks with Premature Rupture of Membranes. Her labor was augmented with Pitocin. She received an Epidural for antepartum pain management. She progressed to complete. After a short course of pushing, over a midline Episiotomy, delivered a healthy viable male infant without complications. The remainder of her hospitalization was unremarkable. Her vital signs remained stable. She will be discharged to home with instructions, prescriptions, and a follow up appointment. Discharge Summary Hospital Course Hospital Course See Above Labs Laboratory Tests 06/23/19 18:05: Red Blood Count 3.88L, Monocytes # (Auto) 1.2H 06/25/19 05:55: Red Blood Count 3.02L, Monocytes # (Auto) 1.3H, White Blood Count 13.4H, Hemoglobin 9.2L, Hematocrit 28L, Neutrophils (%) (Auto) 76H, Neutrophils # (Auto) 10.1H Procedures None. Discharge Physical Examination Allergies: Coded Allergies: No Known Drug Allergies (Unverified , 04/24/19) Vitals & I&Os Vital Signs Date Time Temp Pulse Resp B/P (MAP) Pulse Ox O2 Delivery O2 Flow Rate FiO2 06/24/19 17:27 89 18 109/60 (76) Room Air 06/24/19 16:14 37.0 06/24/19 03:30 97 General Appearance: Alert, Oriented X3, Cooperative HEENT: Atraumatic Respiratory: Clear to Auscultation, Normal Air Movement Cardiovascular: Regular Rate, No Murmurs Abdominal: Normal Bowel Sounds, Soft Extremities: No Clubbing, No Cyanosis Skin: No Breakdown Neuro: Normal Gait, Normal Speech Psych/Mental Status: Mental Status NL Discharge Home Medications Reviewed and agree with Discharge Medication list on patient's Discharge Instruction sheet Instructions to Patient/Family Please see electronic discharge instructions given to patient. Clinical Quality Measures DVT/VTE Risk/Contraindication: Risk Factor Score Per Nursin RFS Level Per Nursing on Admit: 1=Low/No VTE PPX CRUZ GALEANO DO Jun 25, 2019 06:30
[2019-06-25] MEDS ORDERED: PRENATAL VITAMIN 1 EA TAB PO SCH (07:00)
[2019-06-25 08:48] VITALS: BP 110/66
[2019-06-25] MEDS: DOCUSATE SODIUM 100 MG (COLACE) CAP PO SCH (09:00)
--- NOTE | 2019-06-25 09:00 | NUR ---
ice pack given per pt request to place on perineum
--- NOTE | 2019-06-25 09:57 | Anesthesia-Regional Post-Op ---
Regional Patient Condition Mental Status: Alert, Oriented x3 Circulation: Same as Pre-Op Headache: Absent Sensation: Full Recovery Motor Block: Absent Post Op Complications Complications None Follow Up Care/Instructions Patient Instructions None needed. Anesthesia/Patient Condition Patient is doing well, no complaints, stable vital signs, no apparent adverse anesthesia problems. No complications reported per nursing. DARREL HEARN CRNA Jun 25, 2019 09:57
--- NOTE | 2019-06-25 11:00 | NUR ---
ice pack given for pt to place on perineum
--- NOTE | 2019-06-25 11:26 | NUR ---
Rubella lab not drawn with labs. Dr Reyna notified and order to give MMR.
--- NOTE | 2019-06-25 12:30 | NUR ---
Prescriptions given to pt and s.o. and discussed medications with pt. pt verbalized understanding and will get them filled so that she will have them here for discharge to room in parent today.
[2019-06-25 13:16] VITALS: BP 111/62
[2019-06-25] MEDS ORDERED: MEASLES,MUMPS,RUBELLA 1 EA INJ ONE (15:39)
[2019-06-25] MEDS ORDERED: TETANUS,DIPTH,PERTUSS P/F (BOOSTRIX) 0.5 ML VIAL IM ONE (15:39)
[2019-06-25] MEDS: WITCH HAZEL(TUCKS) 40 EA JAR TOP PRN (16:15)
[2019-06-25] MEDS: BENZOCAINE/MENTHOL (DERMOPLAST) 56 ML CAN TP PRN (16:15)
--- NOTE | 2019-06-25 16:15 | NUR ---
Discharge instructions explained, signed and copy to patient. pt verbalized understanding of instructions and denied questions. rn discussed medications with pt and pt verbalized understanding. room in parent instructions given to pt. Addendum: 06/25/19 at 1626 by ALLI VENCES RN pt now discharged to room in parent
== END 2019-06-25 16:15 | disposition home or self-care (01) | DRG 807 ==
LOC: LDRP 16:52 → WSo 16:52 → LDRP 17:15
PROVIDERS: ADMIT Obstetrics & Gynecology; ATTEND Obstetrics & Gynecology
PROC: 10E0XZZ Delivery of Products of Conception, External Approach (ICD-10-PCS; principal; 2019-06-24)
PROC: 0W8NXZZ Division of Female Perineum, External Approach (ICD-10-PCS; 2019-06-24)
DX: O42.013 Preterm premature rupture of membranes, onset of labor within 24 hours of rupture, third trimester (principal); Z3A.35 35 weeks gestation of pregnancy; Z37.0 Single live birth; Z23 Encounter for immunization
CPT/HCPCS: 36415; 85025; 86850; 86900; 86901; 90707; 90715; 99212